=== PATIENT | male | born 1975 | race Caucasian/White ===

== ENCOUNTER 2018-10-02 15:21 | Outpatient (REF) | payer MEDICAID, SELFPAY ==
[2018-10-02 19:15] LABS: Absolute Basophil Count 0.02 k/cumm (0.0-0.2); Absolute Eosinophil Count 0.09 k/cumm (0.0-0.7); Absolute Lymphocyte Count 2.28 k/cumm (1.2-3.4); Absolute Monocyte Count 0.56 k/cumm (0.11-0.7); Absolute Neutrophil Count 2.51 k/cumm (1.2-6.7); Basophils % 0.4; Eosinophils % 1.6; HCT 43.2 % (40.0-50.0); HGB 14.5 g/dL (13.5-17.5); Lymphocytes % 41.8; Mean Corp. HGB Concentration 33.6 g/dL (32.0-36.0); Mean Corpuscular Hemoglobin 29.9 pg (27.0-33.0); Mean Corpuscular Volume 89.1 fL (80-95); Mean Platelet Volume 9.8 fL (8.0-11.0); Monocytes % 10.3; Neutrophils % 45.9; Platelet Count 242 x1000/uL (130-400); RBC 4.85 m/cumm (4.50-6.00); RBC Distribution Width 13.5 % (11.8-14.1); White Blood Cell Count 5.46 k/cumm (4.4-10.8)
[2018-10-02 19:37] LABS: ALT 20 U/L (12-78); AST 15 U/L (15-37); Albumin 3.8 g/dL (3.4-5.0); Alkaline Phosphatase 60 U/L (46-116); Anion Gap 6.8 mmol/L (3-11); BUN 10 mg/dL (7-18); Bilirubin, Total 0.4 mg/dL (0.2-1.0); CO2 28.2 mmol/L (21.0-32.0); CREATININE 0.88 mg/dL (0.70-1.30); Calcium 9.4 mg/dL (8.5-10.1); Chloride 105 mmol/L (98-107); Glucose 96 mg/dL (70-100); Sodium 140 mmol/L (136-145); TSH 2.03 uIU/mL (0.358-3.74); Total Protein 7.2 g/dL (6.4-8.2)
== END 2018-10-02 15:41 ==
LOC: NCHCN 15:21
PROVIDERS: PCP Nurse Practitioner Family; Visit Provider Nurse Practitioner Family
DX: R51 Headache (principal); H53.9 Unspecified visual disturbance
CPT/HCPCS: 80053; 84443; 85025

== ENCOUNTER 2018-12-03 15:57 | Emergency (ER) | payer MEDICAID, SELFPAY ==
[2018-12-03 16:22] VITALS: BP 129/85; PULSE 72; RESP 16; TEMP 36.3; O2SAT 99
[2018-12-03] MEDS: Silver Nitrate Stick 1 EACH (16:50)
--- NOTE | 2018-12-03 16:54 | DI.RAD_ITS ---
SYMPTOM/DIAGNOSIS: FINGER DECAPITATED LEFT RING FINGER: Three views. No acute fracture or dislocation is seen. There is loss of the ulnar aspect of the tip of the left ring finger. No radiopaque foreign bodies are seen. IMPRESSION: No acute fracture or dislocation. Soft tissue injury involving the tip of the left ring finger.
[2018-12-03] MEDS: Clindamycin 150 MG CAP 450 MG PO (17:24)
--- NOTE | 2018-12-03 17:34 | W.ED.GENAD ---
Discharge Plan Disposition Patient Disposition: HOME Condition: Good Discharge Details Chief Complaint: Laceration Clinical Impression: Finger avulsion Primary Care Provider: Vicki Linton ED Provider: Abdelrahman Horner Home Meds and New Rx's Prescriptions: New clindamycin HCl 150 mg capsule 450 mg PO TID 7 Days Qty: 63 RF: 0 No Action amoxicillin 500 mg Capsule 1 mg PO .Q6HRS RF: 0 acetaminophen-codeine [Tylenol-Codeine #3] 300-30 mg Tablet 1 - 2 tab PO .Q4-6 HOURS RF: 0 Discharge Instructions Instructions: Finger Amputation (ED) Additional Instructions: Please take the antibiotic as directed. Please take 800 mg of ibuprofen every 6 hours and 1000 mg of Tylenol every 6 hours as needed for pain. Please take this antibiotic with yogurt with live cultures to prevent any diarrhea. Please follow-up immediately with your primary care provider for reassessment. If you notice any redness, drainage, discharge, swelling, worsening pain, fever, or chills please return immediately for reassessment. If you notice any worsening of your symptoms, or any new symptoms such as vomiting, diarrhea, fever, chills, shortness of breath, chest pain, numbness, weakness, or fainting , please return immediately to the emergency department for reevaluation. Please follow up with your primary care provider as soon as possible for reassessment and reevaluation. As always, it was a pleasure participating in your medical care today. Referrals: Vicki Linton [Primary Care Provider] - Discharge Data Discharge Date/Time-TO BE ENTERED AT DEPARTURE: 12/03/18 17:42 Medical Decision Making Is a pleasant 43-year-old male with a past medical history of previous finger avulsions with power tools, who presents today for evaluation of avulsion of his nondominant hand ring finger over the medial aspect on his left hand. Occurred roughly 30-45 minutes prior to arrival. Patient's tetanus is up-to-date. He is actually already on amoxicillin secondary to a recent dental procedure. Physical exam demonstrates a notably avulsed fingertip on the medial component at an angle of roughly 30 degrees. There is no excess skin whatsoever secondary to the nature of the injury. Fortunately the angle also deviates more so towards the ventral aspect, which unfortunately indicates no excess skin or tissue that can be undermined or utilized for covering indurated nature of the wound. Initial palpation revealed no evidence of bone, however exploration with hemostat does reveal evidence of bone underneath the currently present soft tissues and finger pulp of the finger. The area was blocked with 5 cc of a 50-50 mixture of 1% lidocaine and bupivacaine. Following this a tourniquet was placed, and the area was cleaned and irrigated with copious amounts of normal saline and chlorhexidine. After this bleeding was stopped with silver nitrate sticks, followed by Dermabond application multiple layers of Dermabond were applied, tourniquet was removed, and there was no bleeding after this. Patient tolerated the procedure well. There was unfortunately no excess tissue that could be utilized covering. Because of the nature of the wound, the initial dirty component clindamycin was added to the patient's medications, and it was recommended that his amoxicillin be stopped. I did discuss follow-up with the patient, and he would like to follow-up with his family doctor first, we will be following up next week. I did recommend orthopedic follow-up as well for further reevaluation. We discussed red flags which to return and the patient understands. Initial dose of clindamycin was given here in the ED. I have extensively reviewed the treatment plan and discharge instructions with the patient. I have addressed all patient concerns at this time. The patient was made aware of what symptoms to monitor for that would warrant a return to the emergency department. Discussed the plan with the patient, they demonstrate verbal understanding and agreement with our assessment and plan at this time. Shaft of medial corner of left hand nondominant ring finger Dermabond applied clindamycin given HPI General Date/Time Provider Initiated Documentation: 12/03/18 16:54. HPI Narrative: This is a 43-year-old male with past medical history of previous avulsed fingers, who presents today for evaluation of an avulsed finger. Patient states that roughly 30 minutes prior to arrival he was utilizing a power tool/router when it caught his medial aspect of his left ring finger. He is right-hand dominant. He came in immediately for further evaluation. Tetanus was updated last year. He is currently on amoxicillin for recent teeth that were pulled. Aside for the avulsed finger component he denies any other pain in his finger, hand, or extremity. No other complaints or modifying factors at this time. Related Data Home Medications Medication Instructions Recorded Confirmed acetaminophen-codeine 1 - 2 tab PO .Q4-6 HOURS 12/03/18 12/03/18 [Tylenol-Codeine #3] amoxicillin 1 mg PO .Q6HRS 12/03/18 12/03/18 clindamycin HCl 450 mg PO TID 7 Days #63 cap 12/03/18 Previous Rx's Medication Instructions Recorded clindamycin HCl 450 mg PO TID 7 Days #63 cap 12/03/18 Allergies Allergy/AdvReac Type Severity Reaction Status Date / Time No Known Allergies Allergy Unverified 12/03/18 16:24 General Stated Complaint: Laceration HOLLEY: 4 Review of Systems Review of Systems All systems reviewed & are unremarkable except as noted in HPI and below PFSH Surgical History Open Carpal Tunnel release Tonsillectomy and adenoidectomy Social History Smoking/Tobacco Use Status: Current every day Drug use: Socially Do you feel safe in your relationship?: Yes Exam Narrative Exam Narrative: 1.Const: Well-nourished, Well-developed, appearing stated age 2.Eyes: PERRL, no conjunctival injection, and symmetrical lids. 3.ENT: Atraumatic external nose and ears. Moist MM. Neck: Symmetric, trachea midline, No thyromegaly. 4.CVS: +S1/S2, No murmurs or gallops. Peripheral pulses 2+ and equal in all extremities. Brisk capillary refill in all extremities. 5.RESP: Unlabored respiratory effort. Clear to auscultation bilaterally. No wheezes rales or rhonchi 6.GI: Soft, Nontender/Nondistended, No hepatosplenomegaly. No guarding or rebound. 7.MSK: Normocephalic, Extremities demonstrate notable deformity over the left hand and the ring finger over the medial aspect at the distal tip. Complete avulsion of the skin at a 30 degree angle is present, it extends to the nail taking off the medial corner of the distal nail tip. No other sign of injury. Palpation reveals no evidence of bone, gentle exploration with hemostat does show evidence of bone just below the impacting present soft tissue. However there is no excess skin draw over it secondary to the nature and angle of the soft tissue injury. 8.Skin: Warm, Dry. No rashes or lesions. Please see musculoskeletal 9.Neuro: medical laboratory technicians II-XII grossly intact. Sensation grossly intact, no focal neurologic deficits. 10.Psych: (AAO) x3. Appropriate mood and affect Course Vital Signs Temperature 36.3 C L 12/03/18 16:22 Pulse 72 12/03/18 16:22 Respiratory Rate 16 12/03/18 16:22 Blood Pressure 129/85 12/03/18 16:22 Pulse Oximetry 99 12/03/18 16:22 Temperature 36.3 C L 12/03/18 16:22 Temperature Source Skin 12/03/18 16:22 Pulse 72 12/03/18 16:22 Respiratory Rate 16 12/03/18 16:22 Respiratory Effort 12/03/18 16:22 Blood Pressure 129/85 12/03/18 16:22 Blood Pressure Position Sitting 12/03/18 16:22 Pulse Oximetry 99 12/03/18 16:22 Oxygen Delivery Method Room Air 12/03/18 16:22 Oxygen Flow Rate 0 12/03/18 16:22 Pain Level 10 12/03/18 16:22
--- NOTE | 2018-12-03 18:24 | DI.VRAD_ITS ---
EXAM: XR Left Finger(s), 2 or More Views EXAM DATE/TIME: 12/03/2018 5:17 PM CLINICAL HISTORY: 43 years old, male; Injury or trauma; Injury history: Trauma from saw; Initial encounter; Wound; Finger; Left; Ring finger TECHNIQUE: Imaging protocol: XR Left finger minimum 2 views. COMPARISON: CR LEFT HAND COMPLETE 07/14/2014 12:04 PM FINDINGS: Bones/joints: Normal. Soft tissues: Soft tissue injury tip fourth finger. IMPRESSION: Soft tissue injury tip fourth finger. Dictated and Authenticated by: Artis Guardado MD. Ordering:DIANE Quick MD
== END 2018-12-03 17:42 | disposition home or self-care (01) ==
PROVIDERS: Emergency Provider Student in an Organized Health Care Education/Training Program; PCP Nurse Practitioner Family
DX: S61.305A Unspecified open wound of left ring finger with damage to nail, initial encounter (principal); W29.8XXA Contact with other powered hand tools and household machinery, initial encounter
CPT/HCPCS: 12001; 73140

== ENCOUNTER 2018-12-16 15:27 | Emergency (ER) | payer MEDICAID, SELFPAY ==
[2018-12-16 15:31] VITALS: BP 118/76; PULSE 79; RESP 20; TEMP 36.9; O2SAT 98
--- NOTE | 2018-12-16 16:31 | ED.GENADUL_ITS ---
Discharge Plan Disposition Patient Disposition: HOME Condition: Good Discharge Details Chief Complaint: Cellulitis Clinical Impression: Encounter for post-traumatic wound check Primary Care Provider: Vicki Linton ED Provider: Yair Howard Discharge Instructions Additional Instructions: Leave the dressing that we have placed on for 2 days. Remove dressing and start cleaning twice a day with soap and water, apply antibiotic ointment and redress. Follow-up with primary care in 2-3 weeks if it does not seem to be healing as expected. Return to the ED for fever, finger swelling, erythema, drainage Referrals: Vicki Linton [Primary Care Provider] - Medical Decision Making Finger does not look infected. Part of the Dermabond has been raised. I see fibrinous degradation product but no infection. We soaked the finger in Betadine/saline solution. With tweezers and iris scissors I was able to remove the rest of the Dermabond. Tissue actually looks pretty good. There is some fibrinous degradation product present. There is no overt infection. Finger was soaked further. Nursing did some wound care and applied Xeroform dressing. I will have the patient leave this on for a couple of days. He will then begin doing dressing changes twice a day. Return to emergency department for increasing pain, redness, drainage or fever. Follow-up with primary care if healing does not seem to be progressing as expected. HPI General Mode of arrival: ambulatory . Date/Time Provider Initiated Documentation: 12/16/18 15:36 . Limitations to Documentation: no limitations . Information obtained by: patient and old records reviewed . HPI Narrative: Patient presents for wound check. Patient was here on December 03 with a left ring finger avulsion injury. As part of the repair process multiple layers of Dermabond were applied. Patient reports that it has been slowly falling off. Last night he noticed that there was green drainage so he tried getting it off so he could clean it more. Finger is sore but there is no swelling or erythema. He decided he should come here for evaluation to make sure it was not infected. Related Data Allergies Allergy/AdvReac Type Severity Reaction Status Date / Time No Known Allergies Allergy Unverified 12/03/18 16:24 General Stated Complaint: Cellulitis HOLLEY: 3 Review of Systems Constitutional Denies fever(s) Integumentary/Breasts Denies erythema and Reports wounds [facility] Surgical History Open Carpal Tunnel release Tonsillectomy and adenoidectomy Social History Smoking/Tobacco Use Status: Current every day Drug use: Socially Do you feel safe in your relationship?: Yes Exam Narrative Exam Narrative: Patient is afebrile and looks well. Examination of the left hand is normal except for an area of discolored and hard Dermabond overlying previous avulsion injury. There is no significant erythema, swelling, drainage from the finger currently. Course Vital Signs Temperature 98.4 F 12/16/18 15:31 Pulse 79 12/16/18 15:31 Respiratory Rate 20 12/16/18 15:31 Blood Pressure 118/76 12/16/18 15:31 Pulse Oximetry 98 12/16/18 15:31 Temperature 98.4 F 12/16/18 15:31 Temperature Source Temporal Artery Scan 12/16/18 15:31 Pulse 79 12/16/18 15:31 Respiratory Rate 20 12/16/18 15:31 Respiratory Effort Non-Labored 12/16/18 15:31 Blood Pressure 118/76 12/16/18 15:31 Pulse Oximetry 98 12/16/18 15:31 Oxygen Delivery Method Room Air 12/16/18 15:31 Oxygen Flow Rate 0 12/16/18 15:31 Pain Level 2 12/16/18 15:31
[2018-12-16 20:22] VITALS: BP 118/76; PULSE 79; RESP 20; TEMP 36.9; O2SAT 98
== END 2018-12-16 16:44 | disposition home or self-care (01) ==
PROVIDERS: Emergency Provider Emergency Medicine; PCP Nurse Practitioner Family
DX: S61.305D Unspecified open wound of left ring finger with damage to nail, subsequent encounter (principal); W29.8XXD Contact with other powered hand tools and household machinery, subsequent encounter

== ENCOUNTER 2019-08-19 11:06 | Outpatient (REF) | payer SELFPAY ==
[2019-08-20 15:16] LABS: PSA, Diagnostic 0.9 ng/mL (0.0-2.5)
== END 2019-08-19 11:26 ==
LOC: NCHCN 11:06
PROVIDERS: PCP Nurse Practitioner Family; Visit Provider Nurse Practitioner Family
DX: R39.15 Urgency of urination (principal)
CPT/HCPCS: 84153

== ENCOUNTER 2021-04-09 06:43 | Emergency (ER) | payer MEDICAID, SELFPAY ==
[2021-04-09] VITALS (23 sets, daily range): BP systolic 149–207; BP diastolic 70–90; PULSE 81–97; RESP 1–20; TEMP 37.1; O2SAT 95–98
--- NOTE | 2021-04-09 06:45 | RT.EKG_ITS ---
APPROVED REPORT Exam: Resting ECG Reason for Exam: CHEEST PAIN Patient Location: E HR:88 bpm ECG Measurements Heart Rate 88 AXIS WI 121 P 27 QRSd 84 QRS 70 QT 364 T 29 QTc 440 Conclusion Sinus rhythm...normal P axis, V-rate 60- 99 Physician: no stemi, no significant ST elevation or depression
--- NOTE | 2021-04-09 07:03 | DI.CT_ITS ---
Exam(s) CT THORAX CTA EXAM: CT THORAX CTA CLINICAL HISTORY: chest tight, sob, right neck and arm pain. TECHNIQUE: Imaging Protocol: CT angiography of the chest was performed using pulmonary embolus olga col. Multi planar reconstructions were performed. CONTRAST MATERIAL: Intravenous: Omnipaque 350 Contrast volume: 100 cc COMPARISON: CT from 10/23/2017 FINDINGS: CHEST: AORTA: The thoracic aorta exhibits normal diameter. there is no evidence of dissection. PULMONARY ARTERIES: There are no central intraluminal filling defects to suggest acute sent pulmonary emboli.More peripheral vessels are not attic opacified. LUNGS: There are no infiltrates nor evidence of pulmonary infarction.. There are no pleural effusions . There is a 4 millimeter nodule in the right upper lobe noted in addition, there is a [address] noncalcified nodule in the right middle lobe lateral segment. MEDIASTINUM: There is no hilar nor mediastinal adenopathy. Visualized thyroid unremarkable. CARDIAC: Heart size is upper normal. There is no pericardial effusion.Caliber of the thoracic aorta is within normal limits. There is no significant shift of the interventricular septum. PARTIALLY VISUALIZED UPPERMOST ABDOMEN: No obvious findings OSSEOUS: There are multiple healed left-sided rib fractures involving left ribs numbers 3 through 11, inclusive. No acute fractures evident.. IMPRESSION: 1. No evidence of aortic dissection. No pericardial effusion.Heart size upper normal. 2. No central pulmonary emboli evident. 3. Two nodules in the right lung measuring 4 millimeters in the right upper lobe and 7 x 5 millimeter s in the right middle lobe. Appropriate follow-up recommended. No obvious nodules in the left lung. No pleural effusions. No adenopathy evident. Field of view of this study includes most of the neck. The common carotid arteries are patent. Ther e does not appear to be significant atherosclerotic disease at the carotid bifurcations and proximal internal carotid arteries. Also no dissection. Both vertebral arteries are also patent. Left verte bral artery is dominant. Both contribute to the formation of the basilar artery at the skull base. Incidentally noted is complete opacification of the right maxillary sinus. RADIATION DOSE DELIVERED: 717.04mGy.cm Total DLP DATA REPOSITORY: All CT scans at this facility are submitted to the National Radiology Data Registry (NRDR) Dose Index Registry (DIR) with the [employer] ([employer]). RADIATION OPTIMIZATION: All CT scans at this facility use at least one of these dose optimization te chniques: automated exposure control; mA and/or kV adjustment per patient size (includes targeted exa ms where dose is matched to clinical indication); or iterative reconstruction.
[2021-04-09 07:09] LABS: Abs Immature Grans 0.01 10^3/uL (0.0-0.06); Absolute Basophil Count 0.06 10^3/uL (0.0-0.2); Absolute Eosinophil Count 0.24 10^3/uL (0.0-0.7); Absolute Lymphocyte Count 2.44 10^3/uL (1.2-3.4); Absolute Monocyte Count 0.85 10^3/uL (0.1-0.8); Absolute Neutrophil Count 3.11 10^3/uL (1.2-6.7); Basophils % 0.9; Eosinophils % 3.6; HGB 14.6 g/dL (13.5-17.5); Immature Grans % 0.1; Lymphocytes % 36.4; MCH 31.6 pg (27.0-33.0); MCV 93.1 fL (80-95); MPV 8.9 fL (8.0-11.0); Monocytes % 12.7; Neutrophils % 46.3; Nucleated RBC 0 %; Platelet Count 229 10^3/uL (130-400); RBC 4.62 10^6/uL (4.36-5.78); RDW 13.3 % (11.8-14.1); RDW-SD 45.7 fL; WBC 6.71 10^3/uL (4.4-10.8)
[2021-04-09] MEDS: Albuterol/Ipratropium 3 ML UPD VIAL UPD (07:30)
--- NOTE | 2021-04-09 07:31 | ED.GENADUL_ITS ---
Discharge Plan Disposition Patient Disposition: HOME Condition: Good Discharge Details Clinical Impression: Chest pain, Pulmonary nodules Primary Care Provider: Ani Armenta ED Provider: Angie Omalley Home Meds and New Rx's Prescriptions: No Action nicotine (polacrilex) 4 mg gum 4 mg buccal Q2H MDD 24 PRN (Reason: nicotine cravings) Qty: 100 RF: 4 Discharge Instructions Instructions: Chest Pain (ED), Pulmonary Nodules (ED), Neck Pain (ED) Additional Instructions: Please return immediately to the emergency department if you develop any new or worsening symptoms, if your condition does not improve as expected, or if you become otherwise concerned. It is extremely important that you call soon as possible to make an appointment to be seen in follow-up for this visit by your primary care doctor and cardiology. Referrals: Ani Armenta NP [Primary Care Provider] - Artis Stubbs MD [MD CONSULTING PHYSICIAN] - Discharge Data Discharge Date/Time-TO BE ENTERED AT DEPARTURE: 04/09/21 11:06 Medical Decision Making <Abdelrahman Horner DO - Last Filed: 04/09/21 07:36> This Is a 45-year-old male with a past medical history of regular tobacco abuse, regular alcohol use, who otherwise does not usually visited Dr. Presents today for evaluation of chest tightness. Patient states that his chest has been extremely tight for the last 3 days. Is been working on the roof and working outside extensively. He denies any worsening of the pain with exertion. He denies any pleuritic chest pain. He does have a very strong family history of cardiac disease and from heart attacks. He admits to pain going down his right arm when he turns his neck, he is unsure if this is related. He denies any cocaine use or IV or illicit drug use. No other complaints at this time. Physical exam demonstrates no focal neurologic deficits, no pulse asymmetry. Vital signs stable. No reproducible chest pain. Patient does have worsening of his right arm pain when he turns his head and neck to the right. This is not sure if this is a red mclaughlin, or evidence of mild discopathy. Did recommend giving aspirin, patient refused this and stated specifically I do not take aspirin. I do not want any. Differential includes cardiac ischemia, diss ection, musculoskeletal strain, potential reactive airway disease. Will give breathing treatment, get a CT scan of the chest and neck, monitor closely and reassess. Case will be signed out to my colleague Dr. Omalley for reassessment, and follow-up on all labs and imaging. <Angie Omalley MD - Last Filed: 04/16/21 22:21> Juan Engel is a 45 y/o man signed out to me at time of shift change by Dr. Horner with lab, imaging pending; please see his note for H&P. After signout, I was contacted by radiology for protocol clarification of his CT neck and CT chest, plan was for rule out dissection/vascular abnormality of the neck, radiology states they will protocol as such. After CT resulted, patient stated that he had to leave the emergency department immediately secondary to anxiety. Patient states that he was in half-way, and since that time has severe anxiety when in small enclosed spaces such as his emergency department exam room. Patient left the ED, and I had continued conversations with the patient outside in the parking lot. Patient relayed to me that his symptoms resolved entirely after being in the emergency department, and he states that he believes that all of his symptoms are secondary to smoking cigarettes as his symptoms get worse after cigarette use. He states that he has not gone this long (the period that he was in his ED exam room, several hours) without a cigarette for some time. Patient states repeatedly that he plans on quitting smoking as he thinks this is the cause of his pain. I did have a lengthy discussion with the patient that cardiac etiology of his symptoms has not been entirely ruled out, and that given his risk factors admission is indicated. Patient states that under no circumstances would he agree to admission given his anxiety at staying in any type of facility. He does agree to an alternative plan of outpatient follow-up with cardiology and outpatient stress testing. I did discuss the risks of leaving AGAINST MEDICAL ADVICE with the patient, including /permanent disability, patient verbalized understanding the risk and was amenable. Patient with capacity for informed refusal. I also discussed the incidental finding of pulmonary nodules with the patient, and the need for outpatient follow-up with his PCP. I had a lengthy discussion with Patient regarding return to emergency department precautions, that he may return to emergency department at any time if he changes his mind, home care, and importance of outpatient follow-up. Pt verbalizes understanding of the plan and is amenable. Patient discharged to home with clear plan for outpatient follow-up. All questions were answered. Disposition decision was made weighing the risks and benefits of hospitalization versus outpatient treatment, the risk for further decompensation, and the patient's wishes. Medical Records Medical records reviewed: Yes I reviewed the patient's medical records. Imaging Data Radiologic Study: Attestation: I personally reviewed and interpreted this imaging study as follows: Radiologist's impression: Patient Name: Juan Engel #: [id number]: ER Ordering Provider: Abdelrahman Horner DOAccount #: [id number]: REG ER Primary Care Provider: Ani Armenta NPDate of Exam: 04/09/21Sex: M : 1975Age: 45 Exam(s) a CT:CT thorax CTA Exam(s) CT THORAX CTA EXAM: CT THORAX CTA CLINICAL HISTORY: chest tight, sob, right neck and arm pain. TECHNIQUE: Imaging Protocol: CT angiography of the chest was performed using pulmonary embolus protocol. Multi planar reconstructions were performed. CONTRAST MATERIAL: Intravenous: Omnipaque 350 Contrast volume: 100 cc COMPARISON: CT from 10/23/2017 FINDINGS: CHEST: AORTA: The thoracic aorta exhibits normal diameter. there is no evidence of dissection. PULMONARY ARTERIES: There are no central intraluminal filling defects to suggest acute sent pulmonary emboli.More peripheral vessels are not attic opacified. LUNGS: There are no infiltrates nor evidence of pulmonary infarction.. There are no pleural effusions. There is a 4 millimeter nodule in the right upper lobe noted in addition, there is a 7 x 5 millimeter noncalcified nodule in the right middle lobe lateral segment. MEDIASTINUM: There is no hilar nor mediastinal adenopathy. Visualized thyroid unremarkable. CARDIAC: Heart size is upper normal. There is no pericardial effusion.Caliber of the thoracic aorta is within normal limits. There is no significant shift of the interventricular septum. PARTIALLY VISUALIZED UPPERMOST ABDOMEN: No obvious findings OSSEOUS: There are multiple healed left-sided rib fractures involving left ribs numbers 3 through 11, inclusive. No acute fractures evident.. IMPRESSION: 1. No evidence of aortic dissection. No pericardial effusion.Heart size upper normal. 2. No central pulmonary emboli evident. 3. Two nodules in the right lung measuring 4 millimeters in the right upper lobe and 7 x 5 millimeters in the right middle lobe. Appropriate follow-up recommended. No obvious nodules in the left lung. No pleural effusions. No adenopathy evident. Field of view of this study includes most of the neck. The common carotid arteries are patent. There does not appear to be significant atherosclerotic disease at the carotid bifurcations and proximal internal carotid arteries. Also no dissection. Both vertebral arteries are also patent. Left vertebral artery is dominant. Both contribute to the formation of the basilar artery at the skull base. Lab Data Lab results reviewed: Yes I reviewed the patient's lab results. Labs: Laboratory Tests Range/Units 04/09/21 04/09/21 04/09/21 06:50 06:50 10:00 WBC (4.4-10.8) 10^3/uL 6.71 RBC (4.36-5.78) 10^6/uL 4.62 Hgb (13.5-17.5) g/dL 14.6 Hct (40.0-50.0) % 43.0 MCV (80-95) fL 93.1 MCH (27.0-33.0) pg 31.6 MCHC (32.0-36.0) % 34.0 RDW (11.8-14.1) % 13.3 Plt Count (130-400) 10^3/uL 229 MPV (8.0-11.0) fL 8.9 Immature Gran % 0.1 Neutrophils % 46.3 Lymphocytes % 36.4 Monocytes % 12.7 Eosinophils % 3.6 Basophils % 0.9 Nucleated RBC % % 0 Absolute Neutrophils (1.2-6.7) 10^3/uL 3.11 Absolute Lymphocytes (1.2-3.4) 10^3/uL 2.44 Absolute Monocytes (0.1-0.8) 10^3/uL 0.85 H Absolute Eosinophils (0.0-0.7) 10^3/uL 0.24 Absolute Basophils (0.0-0.2) 10^3/uL 0.06 Sodium (136-145) mmol/L 141 Potassium (3.5-5.1) mmol/L 4.4 Chloride (98-107) mmol/L 104 Carbon Dioxide (21.0-32.0) mmol/L 27.1 Anion Gap (3-11) mmol/L 9.9 BUN (7-18) mg/dL 15 Creatinine (0.70-1.30) mg/dL 0.8 Estimated GFR/1.73 m2 (mL/min/1.73m2) >= 60.00 Glucose (74-106) mg/dL 114 H Calcium (8.5-10.1) mg/dL 8.7 Total Bilirubin (0.2-1.0) mg/dL 0.2 AST (15-37) U/L 59 H ALT (16-63) U/L 60 Alkaline Phosphatase (46-116) U/L 128 H Troponin I (<0.06) ng/mL < 0.05 < 0.05 NT-Pro-B Natriuret Pep (<300) pg/mL 31 Total Protein (6.4-8.2) g/dL 7.7 Albumin (3.4-5.0) g/dL 4.0 Lipase (73-393) U/L 312 ECG Data Attestation: I personally reviewed and interpreted this ECG (s) as follows: Interpretation: EKG 10: 38 shows sinus rhythm at 75, normal axis, no major change from prior, no STEMI, non-diagnostic EKG HPI <Abdelrahman Horner DO - Last Filed: 04/09/21 07:36> General Date/Time Provider Initiated Documentation: 04/09/21 06:46 . HPI Narrative: This Is a 45-year-old male with a past medical history of regular tobacco abuse, regular alcohol use, who otherwise does not usually visited Dr. Presents today for evaluation of chest tightness. Patient states that his chest has been extremely tight for the last 3 days. Is been working on the roof and working outside extensively. He denies any worsening of the pain with exertion. He denies any pleuritic chest pain. He does have a very strong family history of cardiac disease and from heart attacks. He admits to pain going down his right arm when he turns his neck, he is unsure if this is related. He denies any cocaine use or IV or illicit drug use. No other complaints at this time. Related Data Home Medications Medication Instructions Recorded Confirmed nicotine (polacrilex) 4 mg gum 4 mg BUCCAL Q2H PRN #100 ea MDD 24 04/16/21 04/16/21 Previous Rx's Medication Instructions Recorded nicotine (polacrilex) 4 mg gum 4 mg BUCCAL Q2H PRN #100 ea MDD 24 04/16/21 Allergies Allergy/AdvReac Type Severity Reaction Status Date / Time No Known Allergies Allergy Verified 04/16/21 08:41 General Stated Complaint: Chest Pain HOLLEY: 2 Review of Systems <Abdelrahman Horner DO - Last Filed: 04/09/21 07:36> All systems reviewed & are unremarkable except as noted in HPI and below PFSH <Abdelrahman Horner DO - Last Filed: 04/09/21 07:36> Medical History Carpal tunnel syndrome, bilateral Cigarette smoker Pulmonary nodules Surgical History S/P adenoidectomy Family History Mother , at 78 COPD (chronic obstructive pulmonary disease) Breast cancer Father , 46 Diabetes Stroke Hyperlipidemia Sister No problems noted. Daughter Type 1 diabetes mellitus Daughter No problems noted. Maternal Grandfather , 90 No problems noted. Maternal Grandmother No problems noted. Paternal Grandfather No problems noted. Paternal Grandmother No problems noted. Brother No problems noted. Sister No problems noted. Social History Smoking/Tobacco Use Status: Current every day Tobacco Type: cigarettes Quit status: considering quitting Second Hand Exposure: Yes Smoking risk assessment performed?: Yes Alcohol Intake: current Alcohol Intake frequency: 3 or more drinks per day Alcohol type: beer, wine and hard liquor Drug use: Socially Substance use type: marijuana Caregiver/Support person: No Housing: house Communication Needs: Corrective Lenses Do you need help understanding health information?: Never Pets and animals: No Sexually active: Yes Do you think of yourself as: straight/heterosexual Current gender identity: male What is your relationship status?: living with partner How often do you talk on the phone with friends or family?: three or more times per week How often do you get together with friends or relatives?: three or more times per week How often do you attend oriental orthodox or taoism services?: 1-3 times per year Do you belong to any clubs or organized social groups?: no Panel score (0-1 are the most socially isolated patients): 2 What type of physical activity do you participate in: none Duration: < 15 minutes/day Frequency: 1-2 times per week Seatbelt use: never Helmet use: Yes Drive intox or ride w/intox patrol driver: No Do you feel safe in your relationship?: Yes Exam <Abdelrahman Horner DO - Last Filed: 04/09/21 07:36> Narrative Exam Narrative: 1.Const: Well-nourished, Well-developed, appearing stated age 2.Eyes: PERRL, no conjunctival injection, and symmetrical lids. 3.ENT: Atraumatic external nose and ears. Moist MM. Neck: Symmetric, trachea midline, No thyromegaly. 4.CVS: +S1/S2, No murmurs or gallops. Peripheral pulses 2+ and equal in all ext remities. Brisk capillary refill in all extremities. 5.RESP: Unlabored respiratory effort. Clear to auscultation bilaterally. No wheezes rales or rhonchi 6.GI: Soft, Nontender/Nondistended, No hepatosplenomegaly. No guarding or rebound. 7.MSK: Normocephalic/Atraumatic, Extremities w/o deformity or ttp No cyanosis or clubbing, Normal movement of all extremities 8.Skin: Warm, Dry. No rashes or lesions. 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 Sensation grossly intact, no focal neurologic deficits. Pressing down on the patient's head and neck does not elicit any numbness or tingling in the arms. Turning the patient's head to the right seems to reexacerbate the pain in the patient's right arm. No neurologic deficits otherwise. 10.Psych: (AAO) x3. Appropriate mood and affect Course <Abdelrahman Horner DO - Last Filed: 04/09/21 07:36> Vital Signs Vital signs: Vital Signs Temperature 37.1 C 04/09/21 06:53 Pulse 87 04/09/21 06:53 Respiratory Rate 16 04/09/21 06:53 Blood Pressure 149/90 H 04/09/21 06:53 Pulse Oximetry 97 04/09/21 06:53 Temperature 37.1 C 04/09/21 06:53 Temperature Source Skin 04/09/21 06:53 Pulse 87 04/09/21 06:53 Respiratory Rate 15 04/09/21 07:04 Respiratory Effort 04/09/21 07:04 Respiratory Depth Normal 04/09/21 07:04 Respiratory Pattern Normal 04/09/21 07:04 Blood Pressure 149/90 H 04/09/21 06:53 Blood Pressure Position Supine 04/09/21 06:53 Pulse Oximetry 97 04/09/21 06:53 Oxygen Delivery Method Room Air 04/09/21 06:53 Oxygen Flow Rate 0 04/09/21 06:53 Pain Level 7 04/09/21 07:04 Lab/Test Results Lab/Test Results: Laboratory Tests Range/Units 04/09/21 06:50 WBC (4.4-10.8) 10^3/uL 6.71 RBC (4.36-5.78) 10^6/uL 4.62 Hgb (13.5-17.5) g/dL 14.6 Hct (40.0-50.0) % 43.0 MCV (80-95) fL 93.1 MCH (27.0-33.0) pg 31.6 MCHC (32.0-36.0) % 34.0 RDW (11.8-14.1) % 13.3 Plt Count (130-400) 10^3/uL 229 MPV (8.0-11.0) fL 8.9 Immature Gran % 0.1 Neutrophils % 46.3 Lymphocytes % 36.4 Monocytes % 12.7 Eosinophils % 3.6 Basophils % 0.9 Nucleated RBC % % 0 Absolute Neutrophils (1.2-6.7) 10^3/uL 3.11 Absolute Lymphocytes (1.2-3.4) 10^3/uL 2.44 Absolute Monocytes (0.1-0.8) 10^3/uL 0.85 H Absolute Eosinophils (0.0-0.7) 10^3/uL 0.24 Absolute Basophils (0.0-0.2) 10^3/uL 0.06 Sign Out <Abdelrahman Horner DO - Last Filed: 04/09/21 07:36> Sign Out Data: Sign Out Comment: Chest pain, follow-up 1 imaging, CTA, and troponin Last updated by Abdelrahman Horner DO at 04/09/21 08:01
[2021-04-09 07:35] LABS: ALT 60 U/L (16-63); AST 59 U/L (15-37); Alkaline Phosphatase 128 U/L (46-116); Anion Gap 9.9 mmol/L (3-11); BUN 15 mg/dL (7-18); Bilirubin, Total 0.2 mg/dL (0.2-1.0); CO2 27.1 mmol/L (21.0-32.0); CREATININE 0.8 mg/dL (0.70-1.30); Calcium 8.7 mg/dL (8.5-10.1); Chloride 104 mmol/L (98-107); Glucose 114 mg/dL (74-106); Lipase 312 U/L (73-393); NT-proBNP 31 pg/mL (<300); Potassium 4.4 mmol/L (3.5-5.1); Sodium 141 mmol/L (136-145); Total Protein 7.7 g/dL (6.4-8.2)
[2021-04-09 07:36] LABS: Troponin I < 0.05 ng/mL (<0.06)
--- NOTE | 2021-04-09 09:15 | RT.EKG_ITS ---
APPROVED REPORT Exam: Resting ECG Reason for Exam: chest pain Patient Location: E HR:75 bpm ECG Measurements Heart Rate 75 AXIS VT 128 P 19 QRSd 83 QRS 66 QT 393 T 24 QTc 439 Conclusion Sinus rhythm...normal P axis, V-rate 60- 99 Consider left ventricular hypertrophy...(S V1+R V5/V6) >3.50mV sinus rhythm at 75, normal axis, no major change from prior, no STEMI, non-diagnostic EKG
[2021-04-09] MEDS: Omnipaque 350 MG/ML 100 ML BTL IJ (09:34)
[2021-04-09] MEDS: Normal Saline - Diluent 50 ML VIAL 100 ML IV (10:11)
[2021-04-09] MEDS: Normal Saline Flush 10 ML SYR IVP (10:13)
[2021-04-09 10:39] LABS: Troponin I < 0.05 ng/mL (<0.06)
--- NOTE | 2021-04-09 11:15 | NUR.NOTE ---
Nursing Note: Referral faxed to [facility]iology for follow up of chest pain, needs stress test; within 1 to 2 weeks. Sarah Mejia
== END 2021-04-09 11:06 | disposition home or self-care (01) ==
PROVIDERS: Student in an Organized Health Care Education/Training Program; Emergency Provider Student in an Organized Health Care Education/Training Program; PCP Nurse Practitioner Family
DX: R07.89 Other chest pain (principal); R91.8 Other nonspecific abnormal finding of lung field; F17.210 Nicotine dependence, cigarettes, uncomplicated; Z53.21 Procedure and treatment not carried out due to patient leaving prior to being seen by health care provider
CPT/HCPCS: 36415; 71275; 80053; 83690; 93005; 94640; 99285; 83880; 84484; 85025; 93010; 99284; J3490; J7620

== ENCOUNTER 2021-04-16 20:39 | Outpatient (REF) | payer MEDICAID, SELFPAY ==
[2021-04-16 22:32] LABS: CREATININE 0.8 mg/dL (0.70-1.30); Calculated LDL 90 mg/dL (<100); Cholesterol 199 mg/dL (<200); HDL Cholesterol 75 mg/dL (40-60); Triglyceride 170 mg/dL (<150)
[2021-04-16 22:35] LABS: Hemoglobin A1C 5.4 % (<5.7)
== END 2021-04-16 20:40 | disposition home or self-care (01) ==
LOC: NCHCN 20:39
PROVIDERS: PCP Nurse Practitioner Family; Visit Provider Nurse Practitioner Family
DX: Z00.00 Encounter for general adult medical examination without abnormal findings (principal); R91.8 Other nonspecific abnormal finding of lung field; Z13.1 Encounter for screening for diabetes mellitus; Z13.220 Encounter for screening for lipoid disorders
CPT/HCPCS: 80061; 82565; 83036

== ENCOUNTER 2021-04-17 01:19 | Outpatient (CLI) | payer MEDICAID, SELFPAY ==
--- NOTE | 2021-04-17 09:00 | ETT_ITS ---
APPROVED REPORT Exam: Exercise Treadmill Patient Location: Out-Patient Room/Bed: Stress Nurse: Juanita Pimentel RN Ordering Provider:AMBER ANDRADEWILMAR, Contact Number: [phone] BMI: 25.82 Baseline Rhythm: Sinus Rhythm Comment: Borderline ST elevation, lateral leads. Flipped T waves lead III. Indications: Chest pain Medical History Medical History: Tobacco use (current), pulmonary nodules, chest pain Cardiac Medications: None Allergies: NKA Cardiac Risk Factors: Smoker (current), family hx Previous Cardiac Procedures: None Pretest Chest Pain Characteristics: constant 4/10 R side chest pain Exercise History: Physically active Physical Disabilities: None Lung Sounds: Clear to auscultation, Clear to auscultation Heart Sounds: Regular Stress Test Details Test: Exercise stress testing was performed using a Fidel protocol. Rest Stress HR Resting HR Supine: 68 bpm Max Heart Rate (APMHR): 174 bpm Resting HR Standin bpm Target HR (85% APMHR): 147 bpm Max HR Achieved: 158 bpm % of APMHR: 90 Recovery HR: 91 bpm HR response to stress: Normal HR response to stress BP Resting BP Supine: 138/90 mmHg Resting BP Standin/88 mmHg Max BP: 170/80 mmHg Recovery BP: 138/84 mmHg BP response to stress: Normal blood pressure response to stress. ECG Resting ECG: Sinus Rhythm Ectopy: None Comment: Flipped T waves lead III. Stress ECG: Sinus Tachycardia ST Change: No significant ST segment changes noted Arrhythmia: None Recovery ECG: Sinus Rhythm Recovery ST Change: No significant ST segment changes noted Recovery Arrhythmia: None Comment: Artifact present at start of recovery period. Clinical Reason for Termination: Fatigue Stress Symptoms: General Fatigue, Dyspnea Exercise duration: 13 min01 sec Highest Stage Reached: Stage 5: 5.0 mph at 18% grade. Exercise capacity: 14.18 METs Wagner Treadmill Score: 12 Rate Pressure Product: [id number] Stress ECG Conclusion 1. The patient exercised for 13 minutes (14 METS). Patient no symptoms suggestive of ischemia. 2. Patient's blood pressure and heart rate augmented appropriately. 3. There were no ECG changes suggestive of ischemia. Wagner Treadmill Score is 12 which is Low risk. Stress Test Summary STAGE Time (mins) Speed (mph) Grade (%) HR BP SYMPTOMS METS Supine 68 138/90 constant 4/10 R side chest pain Standing 79 140/88 SpO2 96% 1 3 1.7 10 94 146/90 SpO2 96% 4.6 2 6 2.5 12 110 150/88 SpO2 96% 7 3 9 3.4 14 124 164/82 SpO2 96% 10.2 4 12 4.2 16 138 SpO2 96%, mild dyspnea 12.9 5 15 5.0 18 154 17.2 1 min recovery 120 170/80 SpO2 97%, dyspnea resolved 3 min recovery 93 154/82 6 min recovery 91 138/84 1/10 R side chest pain Pt stated baseline R side chest pain 4/10 prior to exercise. Stated chest pain improved by end of exe rcise 09/17 and felt loosened up.
== END 2021-04-17 01:39 ==
PROVIDERS: PCP Nurse Practitioner Family; Visit Provider Nurse Practitioner Family
DX: R07.9 Chest pain, unspecified (principal); R94.31 Abnormal electrocardiogram [ECG] [EKG]; F17.210 Nicotine dependence, cigarettes, uncomplicated; Z82.49 Family history of ischemic heart disease and other diseases of the circulatory system
CPT/HCPCS: 93017

== ENCOUNTER → 2022-02-26 00:31 | Outpatient (CLI) | payer MEDICAID, SELFPAY | PROVIDERS: PCP Nurse Practitioner Family; Visit Provider Nurse Practitioner Family ==

== ENCOUNTER 2022-03-18 14:28 | Emergency (ER) | payer MEDICAID, SELFPAY ==
[2022-03-18] VITALS (22 sets, daily range): BP systolic 136–149; BP diastolic 87–101; PULSE 67–86; RESP 7–18; TEMP 36.1–37.3; O2SAT 95–100
--- NOTE | 2022-03-18 15:45 | DI.CT_ITS ---
Exam(s) CT CAROTID NECK CTA EXAM: CT CAROTID NECK CTA CLINICAL HISTORY: fall 20ft 2 days ago, rt ant lat neck pain. TECHNIQUE: Imaging Protocol: Axial CT angiography was performed with multi-slice acquisition and mu lti-planar and/or 3D reconstructions. CONTRAST MATERIAL: Intravenous: Omnipaque 350 Contrast volume:185 mL COMPARISON: CT CT THORAX CTA from 04/09/2021 FINDINGS: CTA Neck W: Common Carotid: Right: No aneurysm, occlusion or significant stenosis. Left: No aneurysm, occlusion or significant stenosis. External Carotid: Right: No aneurysm, occlusion or significant stenosis. Left: No aneurysm, occlusion or significant stenosis. Internal Carotid: Right: No aneurysm, occlusion or significant stenosis. Left: No aneurysm, occlusion or significant stenosis. Vertebral Artery: Right: No aneurysm, occlusion or significant stenosis. Left: No aneurysm, occlusion or significant stenosis. Lung Apices: No evidence of an apical pneumothorax. Bones: No evidence of a cervical spine fracture. There is complete opacification of the right maxill carlos sinus. Soft Tissues: Normal. IMPRESSION: 1. Normal CTA examination of the neck. RADIATION DOSE DELIVERED: 348.91 mGy.cm Total DLP 348.91 mGy.cm Total DLP DATA REPOSITORY: All CT scans at this facility are submitted to the National Radiology Data Registry (NRDR) Dose Index Registry (DIR) with the [employer] (A[employer]). RADIATION OPTIMIZATION: All CT scans at this facility use at least one of these dose optimization te chniques: automated exposure control; mA and/or kV adjustment per patient size (includes targeted exa ms where dose is matched to clinical indication); or iterative reconstruction.
--- NOTE | 2022-03-18 15:45 | DI.CT_ITS ---
Exam(s) CT CHEST/ABD/PEL W CT THORACIC LUMBAR SPINE REC EXAM: CT CHEST/ABD/PEL W and CT thoracic and lumbar spine recons CLINICAL HISTORY: fall 20ft 2 days ago, rt flank bruising, lspin ttp TECHNIQUE: Imaging Protocol: Axial computed tomography images with coronal and sagittal reformatted images were created and reviewed CONTRAST MATERIAL: Intravenous: Omnipaque 350 contrast volume:100 mL Oral: No COMPARISON: CT CHEST ABD PELVIS WITH CONTRAST from 10/23/[address] THORAX CTA from 04/09/[address] THORACIC LUMBAR SPINE REC from 03/18/2022 FINDINGS: CHEST: Tracheobronchial tree: Patent where visualized. Pulmonary parenchyma: There is a stable 6 mm nodule in the right middle lobe. There are infiltrates seen in the lower lobes and right middle lobe. No architectural distortion. Visualized thyroid gland: Unremarkable. Mediastinum and Terri: No dominant adenopathy or fluid collection. The esophagus is unremarkable. Pleura: No effusion or pneumothorax. Heart: The heart is not dilated. Coronary artery calcifications are present. No pericardial effusion . Pulmonary arteries: The pulmonary arteries are not adequately opacified for evaluation of emboli. No large central pulmonary emboli are identified. Aorta: Thoracic aorta non-dilated. Lymph nodes: Within normal limits. Soft tissues: There is mild bilateral gynecomastia. Bones:Within normal limits for the patient's age. There are old healed left rib fractures. CT thoracic spine recons: There is now mild depression of the superior endplates of T3 and T4. There is minimal retropulsion posteriorly at T4. No significant central spinal canal stenosis is seen. T his was not present on the prior examination from 04/09/2021. Acute compression fractures cannot be ex cluded. ABDOMEN: Liver: Normal density. No measurable mass. Portal, Superior Mesenteric, and Splenic Veins: Unremarkable. Gallbladder and Biliary Tract: No radiodense calculus or dilation. Pancreas: Normal density, no abnormal calcifications or inflammatory process. Spleen: Normal. Adrenals: No masses seen. Kidneys: Normal size, contour and axis. No radiodense stones or obstructive uropathy. No masses seen. Abdominal Aorta: Abdominal portion non-dilated. Minimal atherosclerosis. Bowel: No obstruction or definite bowel wall thickening. No evidence of appendicitis. There is diver ticulosis, but no evidence of acute diverticulitis. Peritoneal Cavity: No ascites, collection or mesenteric inflammatory response. No free air. Lymph Nodes: Within normal limits. Bones: Within normal limits for the patient's age. Soft Tissues: Unremarkable. CT lumbar spine recons: Minimally displaced fractures of the left L3 and L4 transverse processes is n oted. PELVIS: Bladder: Symmetric distention. No definite acute abnormality. Reproductive Organs: Upper limits of normal in size prostate gland. Lymph Nodes: Within normal limits. Bones: Within normal limits. IMPRESSION: 1. No evidence of abdominal or pelvic organ injury. 2. No acute thoracic visceral injury. 3. Acute mildly displaced fractures of the left L3 and L4 transverse processes. 4. Depression of the superior endplates of T3 and T4 suspicious for acute fractures. These were not present on the CT scan from 04/09/2021. RADIATION DOSE DELIVERED: 850.51 mGy.cm Total DLP DATA REPOSITORY: All CT scans at this facility are submitted to the National Radiology Data Registry (NRDR) Dose Index Registry (DIR) with the [employer] (A[employer]). RADIATION OPTIMIZATION: All CT scans at this facility use at least one of these dose optimization te chniques: automated exposure control; mA and/or kV adjustment per patient size (includes targeted exa ms where dose is matched to clinical indication); or iterative reconstruction.
--- NOTE | 2022-03-18 15:45 | DI.CT_ITS ---
Exam(s) CT CERVICAL SPINE WO EXAM: CT CERVICAL SPINE WO CLINICAL HISTORY: pain right neck, fall 20ft 2 days ago. TECHNIQUE: Imaging Protocol: Axial computed tomography images with coronal and sagittal reformatted images were created and reviewed COMPARISON: CT CT CAROTID NECK CTA from 03/18/2022 FINDINGS: Bones: No acute fracture or subluxation. There is mild reversal of the normal cervical lordosis. Thi s may be due to patient positioning or muscle spasm. Multilevel degenerative changes are seen in the cervical spine. Soft Tissues: Unremarkable. Lung Apices: Clear. IMPRESSION: No acute fracture or subluxation in the cervical spine. RADIATION DOSE DELIVERED: Total DLP Total DLP DATA REPOSITORY: All CT scans at this facility are submitted to the National Radiology Data Registry (NRDR) Dose Index Registry (DIR) with the [employer] (ACR). RADIATION OPTIMIZATION: All CT scans at this facility use at least one of these dose optimization te chniques: automated exposure control; mA and/or kV adjustment per patient size (includes targeted exa ms where dose is matched to clinical indication); or iterative reconstruction.
--- NOTE | 2022-03-18 16:08 | ED.GENADUL_ITS ---
Discharge Plan Disposition Patient Disposition: HOME Condition: Stable Discharge Details Clinical Impression: Accidental fall from ladder, Cigarette smoker, Closed fracture of spinous process of lumbar vertebra, Fracture, thoracic vertebra, Bladder wall thickening, Hiatal hernia, Rib fractures, Calcification of coronary artery, Acute bronchitis, Incidental lung nodule, Acute strain of neck muscle Primary Care Provider: Ani Armenta ED Provider: Matthew Omalley Home Meds and New Rx's Prescriptions: Continued nicotine (polacrilex) 4 mg gum 4 mg buccal Q2H MDD 24 PRN (Reason: nicotine cravings) Qty: 100 4RF Rx Instructions: Weeks 1-6: 1 every 1-2hrs Weeks 7-9: 1 every 2-4hrs Weeks 10-12: 1 every 4-8hrs Discharge Instructions Instructions: Albuterol (By breathing), How to Stop Smoking (ED), Acute Bronchitis (ED), Pulmonary Nodules (ED), Spinous Process Fracture (ED) Additional Instructions: Please take ibuprofen over the counter. Take 600mg by mouth every 6 hours as needed for pain. Please use albuterol inhaler 2 puffs every 4 hours as needed for wheezing. Be sure to use spacer to improve aerosolization. Please follow-up with your primary care physician. Be sure to discuss imaging results from today. Follow-up imaging may be indicated for incidental findings if not previously worked up. Return to the ER for any worsening or new concerning symptoms. Referrals: Ani Armenta, BANK NOTE DESIGNER [Primary Care Provider] - Discharge Data Discharge Date/Time-TO BE ENTERED AT DEPARTURE: 03/18/22 19:40 Medical Decision Making 1628 -- 46yo stoic male here 2 days s/p fall from 20ft to ground landing on left side with right anteriolateral neck pain, left low back pain and ecchymosis, tenderness midline low thoracic spine and wheezing. Patient is neurologically intact and hemodynamically stable. Concern for acute life threatening injury including pneumpthorax vs carotid dissection vs thoracic spinal fracture vs retroperitoneal hemorrhage. Plan to obtain emergent CT imaging. 1823: Imaging was interpreted by radiology who I spoke with. CT cspine: IMPRESSION:No acute findings.? Similar spondylotic degenerative changes. Lungs: Perifissural, polygonal 5 mm nodule within the anterior right middle lobe, likely intrapulmonary lymph node, 7-84. Mild scarring and atelectasis in the anteromedial right middle lobe. Mild dependent hypoventilatory change. No focal consolidation. Pleural spaces: Unremarkable. No pneumothorax. No pleural effusion. Heart: Mild coronary artery calcification is likely. Mediastinal space: Small amount of fibrofatty tissue within the anterior superior mediastinum, most consistent with residual thymus. There is a small esophageal hiatal hernia. Bones/joints: Multiple old left rib fractures. Soft tissues: Mild bilateral gynecomastia. IMPRESSION: No acute visceral injury or -[id number]-. Multiple old left rib fractures. Old spinous process fractures from T4-T10. Mild concavity of superior T3 and T4 endplates, new since 2020 CT, may represent acute fractures IMPRESSION: 1. Acute mildly displaced left L3 and L4 transverse process fractures.? No other finding concerning for acute traumatic injury.? (Old left rib and thoracic spinous process fractures.) 3. Mild urinary bladder wall-thickening, may represent incomplete distention versus outflow obstruction or cystitis.? Correlate with urinalysis. 4. Several mildly distended proximal small bowel loops.? In the appropriate setting, consider enteritis. CT of the thoracic spine was interpreted by radiology: IMPRESSION: 1. Mild concavity of superior T3 and T4 endplates, new since 2020 CT, may represent acute fractures. At T4, minimal retropulsion of superior endplate. Correlate for tenderness. Advise low threshold for MRI assessment of cord, canal and soft tissues. 2. Old left rib fractures and old spinous process fractures from T4 through T10. CT of the lumbar spine was interpreted by radiology: IMPRESSION: 1. Acute left L3 and L4 transverse process fractures. 2. Mild urinary bladder wall thickening, correlate with urinalysis. 3. Please see separate abdominal CT report. CTA neck interpreted by radiology: no dissection noted, IMPRESSION: 1. Patent carotid arteries in the neck.? No hemodynamically significant stenosis of these vessels in the neck. 2. Patent vertebral arteries in the neck. 3. See separate brain MRA report Patient was reassessed. He continues to have no spinal tenderness in upper thoracic spine over T3 and T4. He does note that he fell last winter on ice and injured his upper back at that time. Suspect fractures were sustained at that time. Cervical collar was cleared by me. Patient was given albuterol neb treatment for wheezing. Urinalysis pending. Patient has no urinary symptoms. Lab Data Lab results reviewed: Yes I reviewed the patient's lab results. HPI General Mode of arrival: ambulatory . Date/Time Provider Initiated Documentation: 03/18/22 15:42 . Limitations to Documentation: no limitations . Information obtained by: patient . HPI Narrative: 46yo m here with chief complaint of neck pain. Patient notes that 2 days ago he fell 20ft from ladder to ground landing on his left side. He did not have any pain initially after the fall but later developed pain in his left low back with associated bruising. He notes that yesterday he started to have some swelling and pain in his right anterior lateral neck. Neck pain is now moderate. Pain is worse with movement of the neck. He has no associated numbness or tingling. He also notes recent increase in wheezing. No shortness of breath or chest pain. Pain in his left low back and flank is moderate and worse on palpation. Patient denies head injury. No headache. Related Data Home Medications Medication Instructions Recorded Confirmed nicotine (polacrilex) 4 mg gum 4 mg buccal Q2H PRN nicotine 04/16/21 12/19/21 cravings #100 ea Previous Rx's Medication Instructions Recorded nicotine (polacrilex) 4 mg gum 4 mg buccal Q2H PRN nicotine 04/16/21 cravings #100 ea Allergies Allergy/AdvReac Type Severity Reaction Status Date / Time No Known Allergies Allergy Verified 12/19/21 13:41 General Stated Complaint: Nk/Back Pain HOLLEY: 3 Review of Systems All systems reviewed & are unremarkable except as noted in HPI and below Constitutional Constitutional: Denies fever(s) Musculoskeletal Musculoskeletal: Reports as per HPI PFSH All Active Problems Accidental fall from ladder (Acute) Cigarette smoker (Acute) Closed fracture of spinous process of lumbar vertebra (Acute) Fracture, thoracic vertebra (Acute) Bladder wall thickening (Acute) Hiatal hernia (Chronic) Rib fractures (Acute) Calcification of coronary artery (Acute) Acute bronchitis (Acute) Incidental lung nodule (Acute) Acute strain of neck muscle (Acute) Pulmonary nodules (Acute) Chest pain (Acute) Cigarette smoker (Chronic) Surgical History S/P adenoidectomy Family History Mother , at 78 COPD (chronic obstructive pulmonary disease) Breast cancer Father , 46 Diabetes Stroke Hyperlipidemia Sister No problems noted. Daughter Type 1 diabetes mellitus Daughter No problems noted. Maternal Grandfather , 90 No problems noted. Maternal Grandmother No problems noted. Paternal Grandfather No problems noted. Paternal Grandmother No problems noted. Brother No problems noted. Sister No problems noted. Social History Smoking/Tobacco Use Status: Current every day Tobacco Type: cigarettes Quit status: considering quitting Second Hand Exposure: Yes Smoking risk assessment performed?: Yes Alcohol Intake: current Alcohol Intake frequency: 3 or more drinks per day Alcohol type: beer, wine and hard liquor Drug use: Socially Substance use type: marijuana Caregiver/Support person: No Housing: house Communication Needs: Corrective Lenses Do you need help understanding health information?: Never Pets and animals: No Sexually active: Yes Do you think of yourself as: straight/heterosexual Current gender identity: male What is your relationship status?: living with partner How often do you talk on the phone with friends or family?: three or more times per week How often do you get together with friends or relatives?: three or more times per week How often do you attend anabaptism or voodoo services?: 1-3 times per year Do you belong to any clubs or organized social groups?: no Panel score (0-1 are the most socially isolated patients): 2 What type of physical activity do you participate in: none Duration: < 15 minutes/day Frequency: 1-2 times per week Seatbelt use: never Helmet use: Yes Drive intox or ride w/intox intermodal owner operator truck driver: No Do you feel safe at home: Yes Do you feel safe in your relationship?: Yes Exam Const General: cooperative and no acute distress Nutritional Appearance: well nourished Orientation: alert and awake [facility] Head: normocephalic and atraumatic Face and sinus: normal facial exam Mouth: moist mucous membranes Throat: posterior oropharynx normal Eyes EOM: EOM intact bilaterally Neck Neck: trachea midline, supple, no midline deformity and tender (rt lateral neck) Resp Auscultation: rales bilaterally, no rhonchi and wheezes scattered wheezes Cardio Rate: regular rate and not tachycardic Rhythm: regular rhythm GI Palpation: soft, not firm, no guarding, no masses, not rigid and nontender Back/Spine/Pelvis Back: ecchymosis (left low back to flank) Thoracic/Lumbar Spine: thoracic spinal tenderness (t12) Skin General skin exam: ecchymosis (see back) Neuro General: patient alert, patient awake, patient oriented x3 and tone normal Extrem General: no edema Psych Appearance: grossly normal Mental Status: mental status grossly normal Speech and Movement: speech and movement normal Course Vital Signs Vital signs: Vital Signs Temperature 37.3 C 03/18/22 14:36 Pulse 86 03/18/22 14:36 Respiratory Rate 18 03/18/22 14:36 Blood Pressure 149/93 H 03/18/22 14:36 Pulse Oximetry 95 03/18/22 14:36 Temperature 36.1 C L 03/18/22 15:41 Temperature Source Tympanic 03/18/22 15:41 Pulse 81 03/18/22 15:41 Respiratory Rate 18 03/18/22 14:36 Blood Pressure 146/101 H 03/18/22 15:41 Blood Pressure Position Sitting 03/18/22 14:36 Pulse Oximetry 96 03/18/22 15:41 Oxygen Delivery Method Room Air 03/18/22 15:41 Oxygen Flow Rate 0 03/18/22 15:41 Pain Level 10 03/18/22 15:41
[2022-03-18 16:24] LABS: Abs Immature Grans 0.01 10^3/uL (0.0-0.06); Absolute Basophil Count 0.05 10^3/uL (0.0-0.2); Absolute Eosinophil Count 0.11 10^3/uL (0.0-0.7); Absolute Lymphocyte Count 1.84 10^3/uL (1.2-3.4); Absolute Monocyte Count 0.79 10^3/uL (0.1-0.8); Absolute Neutrophil Count 3.98 10^3/uL (1.2-6.7); Basophils % 0.7; Eosinophils % 1.6; HCT 40.1 % (40.0-50.0); HGB 13.8 g/dL (13.5-17.5); Immature Grans % 0.1; Lymphocytes % 27.1; MCH 30.5 pg (27.0-33.0); MCHC 34.4 % (32.0-36.0); MCV 89 fL (80-95); MPV 8.9 fL (8.0-11.0); Monocytes % 11.7; Neutrophils % 58.8; Platelet Count 177 10^3/uL (130-400); RBC 4.53 10^6/uL (4.36-5.78); RDW 14.3 % (11.8-14.1); RDW-SD 45.9 fL; WBC 6.78 10^3/uL (4.4-10.8)
[2022-03-18] MEDS: Omnipaque 350 MG/ML 100 ML BTL 185 ML IJ (16:36)
[2022-03-18] MEDS: Normal Saline Flush 10 ML SYR IVP (16:37)
[2022-03-18 16:44] LABS: ALT 30 U/L (16-63); AST 32 U/L (15-37); Albumin 4.1 g/dL (3.4-5.0); Alkaline Phosphatase 57 U/L (46-116); Anion Gap 8.9 mmol/L (3-11); BUN 15 mg/dL (7-18); Bilirubin, Total 0.5 mg/dL (0.2-1.0); CO2 28.1 mmol/L (21.0-32.0); CREATININE 0.8 mg/dL (0.70-1.30); Calcium 9.3 mg/dL (8.5-10.1); Chloride 102 mmol/L (98-107); Glucose 90 mg/dL (74-106); Potassium 3.7 mmol/L (3.5-5.1); Sodium 139 mmol/L (136-145); Total Protein 7.6 g/dL (6.4-8.2)
--- NOTE | 2022-03-18 17:32 | DI.VRAD_ITS ---
PROCEDURE INFORMATION: Exam: CTA Neck With Contrast Exam date and time: 03/18/2022 4:29 PM Age: 46 years old Clinical indication: Other: Fall 20 ft 2 days ago, RT anterolateral neck pain TECHNIQUE: Imaging protocol: Computed tomographic angiography of the neck with contrast. 3D rendering (Not supervised by radiologist): MIP and/or 3D reconstructed images were created by the technologist. Radiation optimization: All CT scans at this facility use at least one of these dose optimization techniques: automated exposure control; mA and/or kV adjustment per patient size (includes targeted exams where dose is matched to clinical indication); or iterative reconstruction. Contrast material: OMNIPAQUE 350; Contrast volume: 85 ml; Contrast route: INTRAVENOUS (IV); COMPARISON: CT HEAD NECK FACIAL WO 10/23/2017 7:37 PM FINDINGS: Right common carotid artery: No stenosis. No dissection or occlusion. Right internal carotid artery: No stenosis of the extracranial segment. No dissection or occlusion. Right external carotid artery: No occlusion or stenosis of the origin. Left common carotid artery: No stenosis. No dissection or occlusion. Left internal carotid artery: No stenosis of the extracranial segment. No dissection or occlusion. Left external carotid artery: No occlusion or stenosis of the origin. Right vertebral artery: No stenosis. No dissection or occlusion. Left vertebral artery: No stenosis. No dissection or occlusion. Soft tissues: Normal. No significant soft tissue swelling. Bones/joints: No acute fracture. Reversed cervical lordosis around C6 is increased since CT cervical spine October 2017. IMPRESSION: No stenosis or occlusion. REFERENCES: NASCET CRITERIA. The degree of internal carotid artery stenosis is based on NASCET criteria. Normal is no stenosis. Mild is less than 50% stenosis. Moderate is 50-69% stenosis. Severe is 70% to 99% stenosis. Total occlusion is no detectable patent lumen. Dictated and Authenticated by: Fredrick Eubanks MD. Ordering:ELIZABETH Castro MD
--- NOTE | 2022-03-18 17:38 | DI.VRAD_ITS ---
PROCEDURE INFORMATION: Exam: CT Cervical Spine Without Contrast Exam date and time: 03/18/2022 4:29 PM Age: 46 years old Clinical indication: Other: Fall 20 ft 2 days ago, neck pain TECHNIQUE: Imaging protocol: Computed tomography of the cervical spine without contrast. Radiation optimization: All CT scans at this facility use at least one of these dose optimization techniques: automated exposure control; mA and/or kV adjustment per patient size (includes targeted exams where dose is matched to clinical indication); or iterative reconstruction. COMPARISON: CT HEAD NECK FACIAL WO 10/23/2017 7:37 PM FINDINGS: Bones/joints: No acute fracture. Reversal of the cervical lordosis at C6-C7 is increased since prior 2018 CT. Discs/Spinal canal/Neural foramina: Multilevel degenerative spondylotic disc protrusions C3-C4 through C6-C7, largest being C3-C4 and C6-C7 with stable moderate to high-grade right foraminal stenosis and facet arthropathy C3-C4, high-grade left foraminal encroachment C4-C5 with facet arthropathy and uncinate spur, moderate to high-grade left foraminal encroachment C5-C6 from spurring, and moderate grade left foraminal encroachment from spondylotic disc osteophyte complex C6-C7. No severe spinal canal stenosis. Mastoid air cells: Visualized mastoid compartments and skull base are unremarkable. Lungs: Lung apices are normal. Thyroid: No obvious nodule. Lymph nodes: No visualized significant adenopathy or neck mass. Soft tissues: Unremarkable. IMPRESSION: No acute findings. Similar spondylotic degenerative changes. Dictated and Authenticated by: Fredrick Eubanks MD. Ordering:ELIZABETH Castro MD
--- NOTE | 2022-03-18 17:50 | DI.VRAD_ITS ---
Addendum created by Romina Pettit DO on 03/18/2022 6:05:47 PM EDT: Addendum, 03/18/2022 at 6:04 p.m. dedicated thoracic and lumbar spine CTs demonstrate: Old spinous process fractures from T4-T10. Mild concavity of superior T3 and T4 endplates, new since 2020 CT, may represent acute fractures The findings were verbally communicated via telephone conference at 6:05 PM EDT on 03/18/2022 with RIVERA VASQUEZ. The findings were acknowledged and understood. Initial report created on 03/18/2022 5:49:44 PM EDT: PROCEDURE INFORMATION: Exam: CT Chest With Contrast; Diagnostic Exam date and time: 03/18/2022 4:51 PM Age: 46 years old Clinical indication: Other: Fall 20 ft, RT flank bruising TECHNIQUE: Imaging protocol: Diagnostic computed tomography of the chest with contrast. Radiation optimization: All CT scans at this facility use at least one of these dose optimization techniques: automated exposure control; mA and/or kV adjustment per patient size (includes targeted exams where dose is matched to clinical indication); or iterative reconstruction. Contrast material: OMNIPAQUE 350; Contrast volume: 100 ml; Contrast route: INTRAVENOUS (IV); COMPARISON: CT THORAX CTA 04/09/2021 9:42 AM FINDINGS: Lungs: Perifissural, polygonal 5 mm nodule within the anterior right middle lobe, likely intrapulmonary lymph node, 7-84. Mild scarring and atelectasis in the anteromedial right middle lobe. Mild dependent hypoventilatory change. No focal consolidation. Pleural spaces: Unremarkable. No pneumothorax. No pleural effusion. Heart: Mild coronary artery calcification is likely. Mediastinal space: Small amount of fibrofatty tissue within the anterior superior mediastinum, most consistent with residual thymus. There is a small esophageal hiatal hernia. Lymph nodes: Unremarkable. No enlarged lymph nodes. Vasculature: Unremarkable. No aortic aneurysm. Bones/joints: Multiple old left rib fractures. Soft tissues: Mild bilateral gynecomastia. IMPRESSION: No acute visceral injury or fracture. Multiple old left rib fractures. PROCEDURE INFORMATION: Exam: CT Abdomen And Pelvis With Contrast Exam date and time: 03/18/2022 4:51 PM Age: 46 years old Clinical indication: Other: Fall 20 ft, RT flank bruising TECHNIQUE: Imaging protocol: Computed tomography of the abdomen and pelvis with contrast. Radiation optimization: All CT scans at this facility use at least one of these dose optimization techniques: automated exposure control; mA and/or kV adjustment per patient size (includes targeted exams where dose is matched to clinical indication); or iterative reconstruction. Contrast material: OMNIPAQUE 350; Contrast volume: 100 ml; Contrast route: INTRAVENOUS (IV); COMPARISON: CT CHEST ABD PELVIS WITH CONTRAST 10/23/2017 7:44 PM FINDINGS: Lungs: No concerning finding. Liver: The liver is unremarkable. Gallbladder and bile ducts: The gallbladder is unremarkable. No biliary ductal dilatation. The common bile duct is top normal in caliber with no intrahepatic bile duct dilatation, common duct filling or sonographically obstructing process. Pancreas: The pancreas is unremarkable. Normal caliber pancreatic duct. No duct cutoff and no peripancreatic inflammation. Spleen: The spleen is unremarkable. Adrenal glands: The adrenal glands are unremarkable. Kidneys and ureters: No hydronephrosis or nephrolithiasis. Delayed nephrograms demonstrate normally configured intrarenal collecting system with no abnormal distention or filling defect. Fractionally visualized ureters are of normal course and caliber. Stomach and bowel: Several mildly thick-walled, slightly distended proximal small bowel loops, 6-40. Diverticulosis without diverticulitis. Appendix: No evidence of appendicitis. Intraperitoneal space: Unremarkable. No free air. No significant fluid collection. Vasculature: The aorta is unremarkable. Lymph nodes: Unremarkable. No enlarged lymph nodes. Urinary bladder: The bladder may be thick-walled relative to degree of distention, without perivesical inflammatory changes; this may represent incomplete distension, chronic outflow obstruction, or cystitis. Reproductive: Top-normal sized prostate. Bones/joints: Acute mildly displaced left L3 and L4 transverse process fractures, images 8-807 and [id number]. Mild multilevel degenerative change of the spine. Mild anterior wedging of T11 and T12, unchanged dating to October 2017. Multiple old spinous process fractures from T5 through approximately T9. Soft tissues: Unremarkable. IMPRESSION: 1. Acute mildly displaced left L3 and L4 transverse process fractures. No other finding concerning for acute traumatic injury. (Old left rib and thoracic spinous process fractures.) 3. Mild urinary bladder wall-thickening, may represent incomplete distention versus outflow obstruction or cystitis. Correlate with urinalysis. 4. Several mildly distended proximal small bowel loops. In the appropriate setting, consider enteritis. The findings were verbally communicated via telephone conference at 5:49 PM EDT on 03/18/2022 with RIVERA VASQUEZ. The findings were acknowledged and understood. Dictated and Authenticated by: Romina Pettit MD. Ordering:ELIZABETH Castro MD
--- NOTE | 2022-03-18 18:05 | DI.VRAD_ITS ---
PROCEDURE INFORMATION: Exam: CT Thoracic Spine Without Contrast Exam date and time: 03/18/2022 4:51 PM Age: 46 years old Clinical indication: Other: Fall, lsp ttp TECHNIQUE: Imaging protocol: Computed tomography of the thoracic spine without contrast. Radiation optimization: All CT scans at this facility use at least one of these dose optimization techniques: automated exposure control; mA and/or kV adjustment per patient size (includes targeted exams where dose is matched to clinical indication); or iterative reconstruction. COMPARISON: CT CERVICAL SPINE WO 03/18/2022 4:29 PM, also compared with thoracic CT 8, 04/09/2021. FINDINGS: Bones/joints: Multiple old left rib fractures. Old spinous process fractures from T4-T10. Discs/Spinal canal/Neural foramina: No significant disc protrusion. No severe spinal canal stenosis. No significant neural foraminal narrowing. Soft tissues: Unremarkable. IMPRESSION: 1. Mild concavity of superior T3 and T4 endplates, new since 2020 CT, may represent acute fractures. At T4, minimal retropulsion of superior endplate. Correlate for tenderness. Advise low threshold for MRI assessment of cord, canal and soft tissues. 2. Old left rib fractures and old spinous process fractures from T4 through T10. PROCEDURE INFORMATION: Exam: CT Lumbar Spine Without Contrast Exam date and time: 03/18/2022 4:51 PM Age: 46 years old Clinical indication: Other: Fall, lsp ttp TECHNIQUE: Imaging protocol: Computed tomography of the lumbar spine without contrast. Radiation optimization: All CT scans at this facility use at least one of these dose optimization techniques: automated exposure control; mA and/or kV adjustment per patient size (includes targeted exams where dose is matched to clinical indication); or iterative reconstruction. COMPARISON: CT CHEST ABD PELVIS WITH CONTRAST 10/23/2017 7:44 PM FINDINGS: Bones/joints: Acute left L3 and L4 transverse process fractures. Indolent appearing, small round sclerotic focus in the left ilium which is unchanged dating to October 2017. Mild anterior wedging T11 and T12, unchanged dating to October 2017. Discs/Spinal canal/Neural foramina: Mild multilevel degenerative change of the spine with marginal spurring, disc space narrowing, most prominent at L4-L5. Intraperitoneal space: Please see separate abdomen CT report. Urinary bladder: Mild bladder wall thickening. Soft tissues: Unremarkable. IMPRESSION: 1. Acute left L3 and L4 transverse process fractures. 2. Mild urinary bladder wall thickening, correlate with urinalysis. 3. Please see separate abdominal CT report. The findings were verbally communicated via telephone conference at 6:04 PM EDT on 03/18/2022 with RIVERA VASQUEZ. The findings were acknowledged and understood. Dictated and Authenticated by: Romina Pettit MD. Ordering:ELIZABETH Castro MD
[2022-03-18] MEDS: Albuterol 2.5 MG/3 ML INH SOLN VIAL UPD (18:16)
[2022-03-18 19:18] LABS: Bilirubin Negative (Negative); Blood Negative (Negative); Clarity Clear (Clear); Glucose Negative (Negative); Ketones Negative (Negative); Leukocyte Esterase Negative (Negative); Nitrite Negative (Negative); Urobilinogen 0.2 EU/dL (Up TO 0.2)
[2022-03-18] MEDS: Inhaler, Assist Device 1 EACH MC (19:30)
[2022-03-18] MEDS: Albuterol HFA 8 GM 60 PUFF INH IH (19:30)
== END 2022-03-18 19:40 | disposition home or self-care (01) ==
PROVIDERS: Emergency Provider Student in an Organized Health Care Education/Training Program; PCP Nurse Practitioner Family
DX: S32.039A Unspecified fracture of third lumbar vertebra, initial encounter for closed fracture (principal); S32.049A Unspecified fracture of fourth lumbar vertebra, initial encounter for closed fracture; S22.009A Unspecified fracture of unspecified thoracic vertebra, initial encounter for closed fracture; S22.32XA Fracture of one rib, left side, initial encounter for closed fracture; S16.1XXA Strain of muscle, fascia and tendon at neck level, initial encounter; I25.10 Atherosclerotic heart disease of native coronary artery without angina pectoris; K44.9 Diaphragmatic hernia without obstruction or gangrene; F17.210 Nicotine dependence, cigarettes, uncomplicated; R91.1 Solitary pulmonary nodule; J20.9 Acute bronchitis, unspecified; N32.89 Other specified disorders of bladder; W11.XXXA Fall on and from ladder, initial encounter
CPT/HCPCS: 70498; 74177; 80053; 86850; 86900; 86901; 99285; 71260; 72125; 81003; 85025; 99284; J3490; J7613

== ENCOUNTER → 2022-04-10 02:14 | Outpatient (CLI) | payer MEDICAID, SELFPAY ==
--- NOTE | 2022-04-10 08:28 | DI.CT_ITS ---
Exam(s) CT PELVIC WO EXAM: CT PELVIC WO CLINICAL HISTORY: BLADDER WALL THICKENING ON ER POCUS,N32.89. TECHNIQUE: Imaging Protocol: Axial computed tomography images with coronal and sagittal reformatted images were created and reviewed. CONTRAST MATERIAL: Oral: no COMPARISON: CT CT CHEST/ABD/PEL W from 03/18/2022 FINDINGS: Bladder: Not well distended., No gross wall thickening. Bladder appeared normal on recent post cont rast CT. Bowel: No obstruction or bowel wall thickening. Appendix normal. Peritoneal cavity: No ascites, collection or mesenteric inflammatory response. Bones: No fracture. Soft tissues: Unremarkable. IMPRESSION: Normal CT scan of the pelvis. RADIATION DOSE DELIVERED: 307.87mGy.cmTotal DLP DATA REPOSITORY: All CT scans at this facility are submitted to the National Radiology Data Registry (NRDR) Dose Index Registry (DIR) with the [employer] ([employer]). RADIATION OPTIMIZATION: All CT scans at this facility use at least one of these dose optimization te chniques: automated exposure control; mA and/or kV adjustment per patient size (includes targeted exa ms where dose is matched to clinical indication); or iterative reconstruction.
== END ==
PROVIDERS: PCP Nurse Practitioner Family; Visit Provider Nurse Practitioner
DX: N32.89 Other specified disorders of bladder (principal)
CPT/HCPCS: 72192